=== PATIENT | male | born 2000 | race Caucasian/White ===

== ENCOUNTER 2018-05-20 01:10 | Emergency (ER) | payer BC, OTHER ==
[2018-05-20] MEDS ORDERED: Lidocaine 1%* 5 ML VIAL INJ ONE (02:17)
[2018-05-20] MEDS ORDERED: DOXYcycline CAP(*) 100 MG PO ONE (03:18)
--- NOTE | 2018-05-20 03:20 | ED ---
Laceration/Wound HPI - HPI Summary HPI Summary: 17 year old Male presents with right hand laceration today. He cut it on some glass. He states he may be a foreign body in the wound. He did have some alcohol. Has full range of motion of his hand. He is right-handed. He has no medical conditions. He believes his immunizations are up-to-date. He has 2 lacerations. Minimal active bleeding. no other injury. no head injury or LOC. - History of Current Complaint Stated Complaint: RT HAND LAC Time Seen by Provider: 05/20/18 01:58 Pain Intensity: 6 - Allergy/Home Medications Allergies/Adverse Reactions: Allergies Allergy/AdvReac Type Severity Reaction Status Date / Time Penicillins Allergy Unknown Verified 05/20/18 02:45 Reaction Details PMH/Surg Hx/FS Hx/Imm Hx Endocrine/Hematology History: Denies: Hx Diabetes Cardiovascular History: Denies: Hx Hypertension, Hx Pacemaker/ICD History: Denies: Hx Renal Disease Sensory History: Denies: Hx Hearing Aid Psychiatric History: Denies: Hx Panic Disorder Infectious Disease History: No Infectious Disease History: Denies: Traveled Outside the [place] in Last 30 Days - Family History Known Family History: Positive: Unknown - Social History Alcohol Use: Weekly Substance Use Type: Reports: None Smoking Status (MU): Never Smoked Tobacco Review of Systems Negative: Fever Negative: Chest Pain Negative: Shortness Of Breath Positive: Other - right hand laceration All Other Systems Reviewed And Are Negative: Yes Physical Exam Triage Information Reviewed: Yes Vital Signs On Initial Exam: Initial Vitals Temp Pulse Resp BP Pulse Ox 98.6 F 94 20 102/69 97 05/20/18 01:30 05/20/18 01:30 05/20/18 01:30 05/20/18 01:30 05/20/18 01:30 Vital Signs Reviewed: Yes Appearance: Positive: Well-Appearing Skin: Positive: Other - 3cm by 1cm laceration of right hand, 1cm superficial laceration to right index finger Head/Face: Positive: Normal Head/Face Inspection Eyes: Positive: Normal, Conjunctiva Clear ENT: Positive: Pharynx normal Respiratory/Lung Sounds: Positive: Clear to Auscultation, Breath Sounds Present Cardiovascular: Positive: Normal, RRR Musculoskeletal: Positive: Strength/ROM Intact - right hand, Other - good pulses , no foreign body felt Neurological: Positive: Normal Psychiatric: Positive: Normal Procedures - Laceration/Wound Repair 1 Location: Other - right hand Description: Linear Anesthesia: Local, 1.0% Length, Depth and Shape: 3cm by 1cm Irrigated w/ Saline (ccs): 300 Laceration/Wound Explored: no foreign body removed Suture Type: Prolene Number of Sutures: 5 - 2 vertical mattress sutures, 3 normal 2 Location: Other - right index finger Length, Depth and Shape: 1cm superficial Irrigated w/ Saline (ccs): 20 Closure: Skin Adhesive Diagnostics - Vital Signs Vital Signs Temp Pulse Resp BP Pulse Ox 05/20/18 01:30 98.6 F 94 20 102/69 97 - Laboratory Lab Statement: Any lab studies that have been ordered have been reviewed, and results considered in the medical decision making process. Laceration Repair Course/Dx - Course Course Of Treatment: 17 year old Male presents with right hand laceration today. He cut it on some glass. He states he may be a foreign body in the wound. He did have some alcohol. Has full range of motion of his hand. He is right-handed. He has no medical conditions. He believes his immunizations are up-to-date. He has 2 lacerations. Minimal active bleeding. no other injury. no head injury or LOC. on exam has 3cm by 1cm laceration of right palm that cleaned and placed 2 vertical matress and 3 simple sutures and has 1cm superficial laceration on index finger that cleaned and glue. will place on doxycyline. discussed case with friends as patient is too altered due to alcohol to understand. explained that one laceration on palm will like scar as is an abrasion type laceration. 5 - Differential Dx Differental Diagnoses: Abrasion, Avulsion, Laceration - Clinical Impression Provider Diagnoses: Laceration of right hand Discharge - Sign-Out/Discharge Documenting (check all that apply): Patient Departure - Discharge Plan Condition: Good Disposition: HOME Prescriptions: DOXYcycline CAP(*) [DOXYcycline 100MG CAP(*)] 100 mg PO BID #9 cap Patient Education Materials: Care For Your Stitches (ED) Referrals: No Primary Care Phys,NOPCP [Primary Care Provider] - Additional Instructions: Take Tylenol or ibuprofen for pain Keep area clean and dry for 24 hours Return to ED or primary in 10-14 days to have sutures removed take antibiotic twice a day for 5 days Glue will fall off on own Return to ED if develop signs of infection such as fever, spreading redness, or pus. - Billing Disposition and Condition Condition: GOOD Disposition: Home
[2018-05-20 03:41] VITALS: BP 109/89
== END 2018-05-20 03:39 | disposition home or self-care (01) ==
LOC: ED 01:10
DX: S61.411A Laceration without foreign body of right hand, initial encounter (principal); S61.210A Laceration without foreign body of right index finger without damage to nail, initial encounter; W25.XXXA Contact with sharp glass, initial encounter; Y92.9 Unspecified place or not applicable
CPT/HCPCS: 12001; 96374; 99282; A9270-GY

== ENCOUNTER 2018-09-06 22:52 | Emergency (ER) | payer BC, OTHER ==
[2018-09-07] MEDS ORDERED: ALPRAZolam TAB* 0.5 MG PO ONE (00:42)
--- NOTE | 2018-09-07 00:45 | ED ---
Psychiatric Complaint - HPI Summary HPI Summary: This patient is a 17 year old M presenting to [facility] accompanied by friend with a chief complaint of panic attack following smoking marijuana that began at 2144 yesterday. The patient rates the pain 0/10 in severity. Symptoms aggravated by nothing. Symptoms alleviated by nothing. Patient reports difficulty swallowing. Patient denies vomiting and dizziness. - History Of Current Complaint Chief Complaint: EDPsychosocial Time Seen by Provider: 09/07/18 00:39 Hx Obtained From: Patient Onset/Duration: Sudden Onset, Lasting Hours, Still Present Timing: Constant Severity Initially: Mild Severity Currently: Mild Character: Anxious Aggravating Factor(s): Nothing Alleviating Factor(s): Nothing Ingestion History: Type/Name Of Drug - Marijuana, Approximate Time Of Ingestion - 2144 yesterday - Allergies/Home Medications Allergies/Adverse Reactions: Allergies Allergy/AdvReac Type Severity Reaction Status Date / Time Penicillins Allergy Unknown Verified 09/06/18 23:02 Reaction Details Home Medications: Home Medications NK [No Home Medications Reported] 09/06/18 [History Confirmed 09/06/18] PMH/Surg Hx/FS Hx/Imm Hx Previously Healthy: Yes Endocrine/Hematology History: Denies: Hx Diabetes Cardiovascular History: Denies: Hx Hypertension, Hx Pacemaker/ICD History: Denies: Hx Renal Disease Sensory History: Denies: Hx Hearing Aid Psychiatric History: Denies: Hx Panic Disorder Infectious Disease History: No Infectious Disease History: Denies: Traveled Outside the [place] in Last 30 Days - Family History Known Family History: Positive: Cardiac Disease, Diabetes - Social History Occupation: Student Lives: Dormitory/Roommates Alcohol Use: Weekly Hx Substance Use: Yes Substance Use Type: Reports: Marijuana Hx Tobacco Use: No Smoking Status (MU): Never Smoked Tobacco Review of Systems ENT: Other - Positive difficulty swallowing Negative: Vomiting Neurological: Other - Negative dizziness All Other Systems Reviewed And Are Negative: Yes Physical Exam - Summary Physical Exam Summary: VITAL SIGNS: Reviewed. GENERAL: Patient is a well-developed and nourished male who is lying comfortable in the stretcher. Patient is not in any acute respiratory distress. HEAD AND FACE: No signs of trauma. No ecchymosis, hematomas or skull depressions. No sinus tenderness. EYES: PERRLA, EOMI x 2, No injected conjunctiva, no nystagmus. EARS: Hearing grossly intact. Ear canals and tympanic membranes are within normal limits. MOUTH: Oropharynx within normal limits. NECK: Supple, trachea is midline, no adenopathy, no JVD, no carotid bruit, no c- spine tenderness, neck with full ROM. CHEST: Symmetric, no tenderness at palpation LUNGS: Clear to auscultation bilaterally. No wheezing or crackles. CVS: Regular rate and rhythm, S1 and S2 present, no murmurs or gallops appreciated. ABDOMEN: Soft, non-tender. No signs of distention. No rebound no guarding, and no masses palpated. Bowel sounds are normal. EXTREMITIES: FROM in all major joints, no edema, no cyanosis or clubbing. NEURO: Alert and oriented x 3. No acute neurological deficits. Speech is normal and follows commands. SKIN: Dry and warm Triage Information Reviewed: Yes Vital Signs On Initial Exam: Initial Vitals Temp Pulse Resp BP Pulse Ox 97.8 F 99 16 161/69 99 09/06/18 22:58 09/06/18 22:58 09/06/18 22:58 09/06/18 22:58 09/06/18 22:58 Vital Signs Reviewed: Yes Diagnostics - Vital Signs Vital Signs Temp Pulse Resp BP Pulse Ox 09/06/18 22:58 97.8 F 99 16 161/69 99 - Laboratory Lab Statement: Any lab studies that have been ordered have been reviewed, and results considered in the medical decision making process. Course/Dx - Course Course Of Treatment: This patient is a 17 year old M presenting [place] [facility] [place] friend with a chief complaint of panic attack following smoking marijuana that began at 2145 yesterday. Physical Exam Findings: Nml. In the ED course the patient was given Xanax. Patient will be discharged with follow up from PCP. The patient is agreeable with this plan. - Differential Dx/Clinical Impression Provider Diagnosis: Anxiety Discharge - Sign-Out/Discharge Documenting (check all that apply): Patient Departure - Discharge home - Discharge Plan Condition: Stable Disposition: HOME Patient Education Materials: Anxiety (ED) Referrals: [facility] [[facility]] - 2 Days Additional Instructions: RETURN TO THE EMERGENCY DEPARTMENT FOR NEW OR WORSENING SYMPTOMS - Billing Disposition and Condition Condition: STABLE Disposition: Home - Attestation Statements Document Initiated by Scribe: Yes Documenting Scribe: Kaylin Busby Provider For Whom Scribe is Documenting (Include Credential): Dr. Lesley Puckett MD Scribe Attestation: I, Kaylin Busby, scribed for Dr. Lesley Puckett MD on 09/07/18 at 0639. Scribe Documentation Reviewed: Yes Provider Attestation: The documentation as recorded by the scribe, Kaylin Busby accurately reflects the service I personally performed and the decisions made by me, Dr. Lesley Puckett MD Status of Scribe Document: Viewed
[2018-09-07 01:43] VITALS: BP 97/59
== END 2018-09-07 01:40 | disposition home or self-care (01) ==
LOC: ED 22:52
DX: F41.9 Anxiety disorder, unspecified (principal); F12.90 Cannabis use, unspecified, uncomplicated; Z88.0 Allergy status to penicillin; R13.10 Dysphagia, unspecified
CPT/HCPCS: 99282; A9270-GY